=== PATIENT | male | born 1935 | race Two or more races ===

== ENCOUNTER 2020-07-14 09:48 | Outpatient (CLI) | payer SELFPAY ==
[2020-07-14] VITALS (12 sets, daily range): BP systolic 121–160; BP diastolic 61–80; PULSE 62–68; RESP 16–18; TEMP 36.3–36.6; O2SAT 96–99; BMI 31.4
[2020-07-14 10:34] LABS: Hematocrit 26.4 % (42.0-52.0)
[2020-07-14 15:27] LABS: Hematocrit 27.6 % (42.0-52.0); Hemoglobin 8.5 g/dL (14.1-18.0)
--- NOTE | 2020-07-14 17:06 | PC.NURSE ---
1155 Transfusion of one unit PRBC initiated at this time. Vital signs stable. Patient instructed regarding blood transfusion and s/s of transfusion reaction, with patient verbalizing understanding of all instruction. Lungs little diminished bilateral bases. Resp easy/reg. IV patent. 1255 Patient tolerating blood well with no s/s transfusion reaction noted. VSS. IV patent. Denies complaints. Resp easy/reg. No s/s transfusion reaction noted. 1355 Continues to tolerate blood well. No s/s transfusion reaction noted. Denies complaints. No problems seen. IV patent. VSS. Resp easy/reg. 1415 Blood complete at this time. Patient has tolerated with no s/s transfusion reaction noted. Lungs consistent with baseline assessment. VSS. 1515 One hour post transfusion vital signs stable. No s/s transfusion reaction or problems noted. One hour post H&H collected and sent to lab. 1525 EMS crew present to transport patient back to [facility] at this time. 1530 Detailed report called to MELITON Hensley at [facility], who verbalizes understanding of all information given. Patient transported via stretcher per EMS crew to [facility] at this time.
== END 2020-07-14 15:30 | disposition home or self-care (01) ==
LOC: INF 09:48
PROVIDERS: Visit Provider Internal Medicine Adolescent Medicine
DX: D64.9 Anemia, unspecified (principal)
CPT/HCPCS: 36415; 36430; 85014; 85018; 86850; P9016